=== PATIENT | male | born 1995 | race Asian ===

== ENCOUNTER 2021-12-27 12:03 | Outpatient (CLI) | payer BC ==
[2021-12-27 13:02] LABS: #Eosinphils 0.2 10x3/uL (0.0-0.5); #Monocytes 0.5 10x3/uL (0.0-1.1); #Neutrophils 3.4 10x3/uL (1.5-8.4); %Basophils 0.5 % (0.0-2.0); %Eosinophils 3.4 % (0.0-6.0); %Lymphocytes 35.3 % (18.0-47.0); %Neutrophils 53.3 % (40.0-75.0); Hemoglobin 14.7 g/dL (13.5-17.5); Mean Corpuscular HGB CONC 34.3 g/dL (32.0-36.0); Mean Corpuscular Hemoglobin 29.4 pg (27.0-33.0); Mean Corpuscular Volume 85.6 fl (81.2-95.1); Mean Platelet Volume 10.9 fl (7.4-10.4); Platelet Count 187 10x3/uL (150-450); White Blood Cell (WBC) Count 6.4 10x3/uL (3.5-10.5)
[2021-12-27 13:16] LABS: Anion Gap 15 mmol/L (10-20); BUN (Urea Nitrogen) 12 mg/dL (8.9-20.6); Calc. Creatinine Clearance 0 mL/min (70-130); Calcium 8.9 mg/dL (7.8-10.44); Carbon Dioxide 25 mmol/L (22-29); Chloride 103 mmol/L (98-107); Estimated GFR 96; Glucose 96 mg/dL (70-105); Potassium 4.1 mmol/L (3.5-5.1); Sodium 139 mmol/L (136-145)
== END 2021-12-27 12:04 | disposition home or self-care (01) ==
LOC: LABBT 12:03
PROVIDERS: ATTEND Specialist
DX: Z01.812 Encounter for preprocedural laboratory examination (principal); K64.8 Other hemorrhoids
CPT/HCPCS: 80048; 85025

== ENCOUNTER 2021-12-30 06:26 | Day surgery (SDC) | payer BC ==
[2021-12-28 15:36] VITALS: BMI 27.1
[2021-12-30] MEDS ORDERED: Acetaminophen 500 MG TAB ONE (06:53)
[2021-12-30] MEDS ORDERED: Ketorolac Tromethamine 30 MG/ML VIAL ONE (06:53)
[2021-12-30] MEDS ORDERED: CEFAZOLIN 2 GM VIAL ONE (06:54)
[2021-12-30] MEDS ORDERED: Sodium Chloride 0.9% 100 ML ONE (06:54)
[2021-12-30] MEDS ORDERED: Bupivacaine/Epinephrine 0.25% 30 ML VIAL ONE (06:57)
[2021-12-30] MEDS ORDERED: fentaNYL PF 100 MCG/2 ML SYRINGE ONE (07:31)
[2021-12-30] MEDS ORDERED: Ondansetron PF 4 MG/2 ML Vial ONE (07:36)
[2021-12-30] MEDS ORDERED: PROPOFOL 200 MG/20 ML VIAL ONE (07:36)
[2021-12-30] MEDS ORDERED: Dexamethasone 20 MG/5 ML VIAL ONE (07:36)
[2021-12-30] MEDS ORDERED: Rocuronium Bromide 10 MG/ML (10ML VIAL) ONE (07:36)
== END 2021-12-30 10:05 | disposition home or self-care (01) ==
LOC: SDC 06:26
PROVIDERS: ATTEND Specialist
PROC: 06BY3ZC Excision of Hemorrhoidal Plexus, Percutaneous Approach (ICD-10-PCS; principal; 2021-12-30)
DX: K64.8 Other hemorrhoids (principal); Z79.899 Other long term (current) drug therapy; Z91.040 Latex allergy status; Z90.5 Acquired absence of kidney
CPT/HCPCS: J1100; J1885; J2405; J2704; J3490